=== PATIENT | female | born 1940 | race African-American/Black ===

== ENCOUNTER 2022-01-14 09:51 | Outpatient (CLI) | payer MEDICARE, BC, SELFPAY ==
--- NOTE | ~2022-01-14 | XR_ITS ---
EXAMINATION: XR foot RT standing 2V DATE: 01/14/2022 11:01 INDICATION: Rheumatoid arthritis without rheumatoid factor. TECHNIQUE: 2 views of right foot with weightbearing were obtained. COMPARISON: None. FINDINGS: There is moderate hallux valgus. No fracture. There are erosions at the second and fifth me tatarsophalangeal joints. There is moderate osteoarthritis of first metatarsophalangeal joint and mil d osteoarthritis of some of the interphalangeal joints. There is moderate osteoarthritis of talonavic ular joint. There are enthesophytes at the posterior and plantar aspects of calcaneal tuberosity. IMPRESSION: 1. Erosions at second and fifth metatarsophalangeal joints, consistent with inflammatory arthropathy such as rheumatoid arthritis. 2. Polyarticular osteoarthritis. 3. Moderate hallux valgus. Reviewed, dictated and finalized at location A. IMPRESSION: 1. Erosions at second and fifth metatarsophalangeal joints, consistent with inf lammatory arthropathy such as rheumatoid arthritis. 2. Polyarticular osteoarthritis. 3. Moderate hallux valgus.
--- NOTE | ~2022-01-14 | XR_ITS ---
EXAMINATION: XR foot LT standing 2V DATE: 01/14/2022 11:01 INDICATION: Rheumatoid arthritis without rheumatoid factor. TECHNIQUE: 2 views of left foot with weightbearing were obtained. COMPARISON: None. FINDINGS: Pes planus is noted. There is moderate hallux valgus. No fracture. There is mild osteoarthr itis of first and second metatarsophalangeal joints and many of the interphalangeal joints and midfoo t joints. There are enthesophytes at the posterior and plantar aspects of calcaneal tuberosity. IMPRESSION: 1. Pes planus. 2. Hallux valgus. 3. Polyarticular osteoarthritis. Reviewed, dictated and finalized at location A.
--- NOTE | ~2022-01-14 | XR_ITS ---
EXAMINATION: XR hand BI arthritis min 3V DATE: 01/14/2022 11:01 INDICATION: Rheumatoid arthritis without rheumatoid factor. TECHNIQUE: 4 views of right hand and 4 views of left hand on a total of 7 radiographs were obtained. COMPARISON: None. FINDINGS: RIGHT HAND: Bone alignment is normal. There is advanced arthritis of the distal radioulnar joint, rad iocarpal compartment, and midcarpal compartment with extensive erosions and uniform joint space narro wing. There is mild osteoarthritis of first carpometacarpal joint. There is moderate osteoarthritis o f second metacarpophalangeal joint and mild osteoarthritis of the other metacarpophalangeal joints. T here is an erosion of head of third metacarpal. There is mild osteoarthritis of most of the interphal angeal joints. 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 There is severe osteoarthritis of distal radioulnar jose int. There is severe arthritis of the radiocarpal compartment, capitate-lunate joint, lunate-hamate j oint, and triscaphe joint. There is moderate osteoarthritis of first carpometacarpal joint. There is mild osteoarthritis of most of the metacarpophalangeal joints and interphalangeal joints. IMPRESSION: 1. Severe inflammatory arthropathy with a proximal predominance, likely rheumatoid arthritis. 2. Polyarticular osteoarthritis. Reviewed, dictated and finalized at location A. IMPRESSION: 1. Severe inflammatory arthropathy with a proximal predominance, likely rheumat oid arthritis. 2. Polyarticular osteoarthritis.
[2022-01-14 10:51] LABS: Hematocrit 29.1 % (37.0-47.0); Hemoglobin 8.9 g/dL (12.0-15.0); Mean Corpuscular HGB Conc 30.6 g/dl (32-36); Mean Corpuscular Hemoglobin 23.6 pg (26-34); Mean Corpuscular Volume 77.2 fl (80-100); Mean Platelet Volume 8.6 fl (7.4-10.4); Platelet Count Result 432 k/mm3 (150-375); Red Blood Count 3.77 M/mm3 (4.2-5.4); Red Cell Distribution Width 21.1 % (11.5-14.5); White Blood Count 7.2 K/mm3 (4.5-10.0)
[2022-01-14 11:03] LABS: Alanine Aminotransferase 9 U/L (6-35); Albumin Level 4.1 g/dL (3.5-5.1); Alkaline Phosphatase 150 U/L (38-126); Anion Gap 11 mmol/L (8-16); Aspartate Amino Transferase 15 U/L (14-36); Bilirubin,Total 0.2 mg/dL (0.2-1.3); Blood Urea Nitrogen 19 mg/dL (7-17); CRP 4.7 mg/dL (<1.0); Calcium 9.5 mg/dL (8.4-10.2); Carbon Dioxide 27 mmol/L (22-30); Chloride 100 mmol/L (98-107); Estimated Glomerular Filt Rate > 60; Glucose 86 mg/dL (65-110); Potassium 4.1 mmol/L (3.4-5.0); Sodium 138 mmol/L (137-145); Uric Acid 5.9 mg/dL (2.5-7.5)
[2022-01-14 11:10] LABS: Add Urine Microscopic? YES; Appearance Urine Cloudy (Clear); Bilirubin Urine Negative (Negative); Blood Urine Negative (Negative); Color Urine Yellow (Yellow); Glucose Urine UA Negative (Negative); Ketones Urine Negative (Negative); Leukocyte Esterase Ur Negative LEU/UL (Negative); Mucus Urine Moderate /lpf; Nitrate Urine Negative (Negative); Protein Urine 1+ mg/dL (Negative); Specific Grav Ur 1.021 (1.001-1.035); Squamous Epithelial Cell Urine Moderate /hpf (Few); Urobilinogen Urine Negative mg/dL (<2.0); WBC Urine 0-3 /hpf
[2022-01-14 11:26] LABS: Vitamin D 25 Hydroxy 29.9 ng/mL
[2022-01-14 11:45] LABS: Erythrocyte Sedimentation Rate 128 mm/hr (0-20)
[2022-01-14 15:44] LABS: Rheumatoid Factor 47.7 IU/ML (<12)
[2022-01-18 12:36] LABS: Anti Cyclic Citrullinated Pept >250 Units (<20)
== END 2022-01-14 09:52 | disposition home or self-care (01) ==
PROVIDERS: Visit Provider Internal Medicine
DX: M06.09 Rheumatoid arthritis without rheumatoid factor, multiple sites (principal); M17.0 Bilateral primary osteoarthritis of knee; Z79.899 Other long term (current) drug therapy; Z71.89 Other specified counseling; E55.9 Vitamin D deficiency, unspecified; M19.90 Unspecified osteoarthritis, unspecified site; M19.041 Primary osteoarthritis, right hand; M19.042 Primary osteoarthritis, left hand; M19.071 Primary osteoarthritis, right ankle and foot; M20.11 Hallux valgus (acquired), right foot; M19.072 Primary osteoarthritis, left ankle and foot; M20.12 Hallux valgus (acquired), left foot
CPT/HCPCS: 36415; 73130; 73620; 80053; 81001; 82306; 84550; 85027; 85652; 86038; 86140; 86200; 86430

== ENCOUNTER 2022-03-09 10:33 | Outpatient (CLI) | payer MEDICARE, BC, SELFPAY ==
[2022-03-09 10:49] LABS: Basophils Percent Auto 0.4 % (0.2-1.2); Eosinophils Absolute Auto 0.3 K/mm3 (0-0.3); Eosinophils Percent Auto 6.4 % (0-4.4); Hematocrit 32.5 % (37.0-47.0); Hemoglobin 10.1 g/dL (12.0-15.0); Immature Granulocyte Absolute 0.01 K/mm3 (0.00-0.031); Immature Granulocyte Percent A 0.2 % (0-0.5); Immature Reticulocyte Fraction 9.7 % (3.0-15.9); Lymphocytes Absolute Auto 1.43 K/mm3 (0.9-3.2); Lymphocytes Percent Auto 29.7 % (18.3-44.2); Mean Corpuscular HGB Conc 31.1 g/dl (32-36); Mean Corpuscular Hemoglobin 24.7 pg (26-34); Mean Corpuscular Volume 79.5 fl (80-100); Mean Platelet Volume 8.3 fl (7.4-10.4); Monocytes Absolute Auto 0.2 K/mm3 (0.1-0.6); Monocytes Percent Auto 4.6 % (2.6-8.5); Neutrophils Absolute Auto 2.8 K/mm3 (1.3-6.7); Neutrophils Percent Auto 58.7 % (45.5-73.1); Platelet Count Result 381 k/mm3 (150-375); Red Blood Count 4.09 M/mm3 (4.2-5.4); Red Cell Distribution Width 21.4 % (11.5-14.5); Reticulocyte Hemoglobin Conten 28.3 pg (28.2-35.7); Reticulocytes Absolute 0.03 B/L (32.2-175.7); White Blood Count 4.8 K/mm3 (4.5-10.0)
[2022-03-09 10:56] LABS: Platelet Estimate Adequate (Adequate); Schistocytes None Seen (NORMAL)
[2022-03-09 10:57] LABS: Anisocytosis 1+ (NORMAL)
[2022-03-09 11:40] LABS: Iron 33 ug/dL (37-170)
[2022-03-09 11:49] LABS: Percent Iron Saturation 11 % (20-50)
[2022-03-09 12:03] LABS: Alanine Aminotransferase 10 U/L (6-35); Albumin Level 4.3 g/dL (3.5-5.1); Alkaline Phosphatase 142 U/L (38-126); Anion Gap 11 mmol/L (8-16); Aspartate Amino Transferase 19 U/L (14-36); Bilirubin,Total 0.2 mg/dL (0.2-1.3); Blood Urea Nitrogen 23 mg/dL (7-17); Calcium 9.5 mg/dL (8.4-10.2); Carbon Dioxide 25 mmol/L (22-30); Chloride 103 mmol/L (98-107); Estimated Glomerular Filt Rate > 60; Glucose 87 mg/dL (65-110); Lactate Dehydrogenase 143 U/L (120-246); Potassium 3.9 mmol/L (3.4-5.0); Sodium 139 mmol/L (137-145)
[2022-03-09 12:48] LABS: Folic Acid > 20.0 ng/mL (2.76->20)
[2022-03-12 14:08] LABS: Methylmalonic Acid 133 nmol/L (87-318)
== END 2022-03-09 10:34 | disposition home or self-care (01) ==
LOC: ANHLAB 10:36
PROVIDERS: Visit Provider Internal Medicine Hematology & Oncology
DX: D64.9 Anemia, unspecified (principal)
CPT/HCPCS: 36415; 80053; 82607; 82728; 82746; 83540; 83550; 83615; 83921; 85025; 85046

== ENCOUNTER 2022-06-03 14:51 | Outpatient (CLI) | payer MEDICARE, BC, SELFPAY ==
[2022-06-03 15:17] LABS: Hematocrit 33.1 % (37.0-47.0); Hemoglobin 10.3 g/dL (12.0-15.0); Immature Platelet Fraction Pct 7.9 % (0.9-11.2); Mean Corpuscular HGB Conc 31.1 g/dl (32-36); Mean Corpuscular Hemoglobin 26.2 pg (26-34); Mean Corpuscular Volume 84.2 fl (80-100); Mean Platelet Volume 9.7 fl (7.4-10.4); Platelet Count Result 179 k/mm3 (150-375); Red Blood Count 3.93 M/mm3 (4.2-5.4); Red Cell Distribution Width 17.7 % (11.5-14.5); White Blood Count 5.9 K/mm3 (4.5-10.0)
[2022-06-03 16:49] LABS: Alanine Aminotransferase 14 U/L (6-35); Albumin Level 4.1 g/dL (3.5-5.1); Alkaline Phosphatase 144 U/L (38-126); Anion Gap 9 mmol/L (8-16); Aspartate Amino Transferase 22 U/L (14-36); Bilirubin,Total 0.3 mg/dL (0.2-1.3); Blood Urea Nitrogen 33 mg/dL (7-17); Calcium 9.3 mg/dL (8.4-10.2); Carbon Dioxide 24 mmol/L (22-30); Chloride 101 mmol/L (98-107); Estimated Glomerular Filt Rate 47; Glucose 90 mg/dL (65-110); Potassium 4.6 mmol/L (3.4-5.0); Sodium 134 mmol/L (137-145)
[2022-06-03 16:52] LABS: Erythrocyte Sedimentation Rate 17 mm/hr (0-20)
[2022-06-03 17:00] LABS: Appearance Urine Clear (Clear); Bacteria Urine None Seen /hpf; Bilirubin Urine Negative (Negative); Blood Urine Trace (Negative); Color Urine Yellow (Yellow); Glucose Urine UA Negative (Negative); Ketones Urine Negative (Negative); Leukocyte Esterase Ur Negative LEU/UL (Negative); Nitrate Urine Negative (Negative); Non Pathogenic Casts 0-2; Protein Urine Negative (Negative); RBC Urine 0-2 /hpf (0-2); Specific Grav Ur 1.015 (1.001-1.035); Squamous Epithelial Cell Urine Moderate /hpf (Few); Urobilinogen Urine 0.2 mg/dL (<2.0); WBC Urine 0-5 /hpf
[2022-06-03 17:05] LABS: Add Urine Microscopic? YES
== END 2022-06-03 14:52 | disposition home or self-care (01) ==
LOC: ANHLAB 14:55
PROVIDERS: Visit Provider Internal Medicine
DX: M06.09 Rheumatoid arthritis without rheumatoid factor, multiple sites (principal); M06.9 Rheumatoid arthritis, unspecified; M19.90 Unspecified osteoarthritis, unspecified site
CPT/HCPCS: 36415; 80053; 81001; 85027; 85055; 85652; 86140

== ENCOUNTER 2022-09-06 13:56 | Outpatient (CLI) | payer MEDICARE, BC, SELFPAY ==
[2022-09-06 14:11] LABS: Basophils Percent Auto 0.5 % (0.2-1.2); Eosinophils Absolute Auto 0.2 K/mm3 (0-0.3); Eosinophils Percent Auto 2.9 % (0-4.4); Hematocrit 29.5 % (37.0-47.0); Hemoglobin 9.4 g/dL (12.0-15.0); Immature Granulocyte Absolute 0.01 K/mm3 (0.00-0.031); Immature Granulocyte Percent A 0.2 % (0-0.5); Lymphocytes Absolute Auto 1.71 K/mm3 (0.9-3.2); Lymphocytes Percent Auto 30.5 % (18.3-44.2); Mean Corpuscular HGB Conc 31.9 g/dl (32-36); Mean Corpuscular Hemoglobin 26.1 pg (26-34); Mean Corpuscular Volume 81.9 fl (80-100); Mean Platelet Volume 8.2 fl (7.4-10.4); Monocytes Absolute Auto 0.3 K/mm3 (0.1-0.6); Monocytes Percent Auto 6.1 % (2.6-8.5); Neutrophils Absolute Auto 3.4 K/mm3 (1.3-6.7); Neutrophils Percent Auto 59.8 % (45.5-73.1); Platelet Count Result 393 k/mm3 (150-375); Red Cell Distribution Width 18.6 % (11.5-14.5); White Blood Count 5.6 K/mm3 (4.5-10.0)
[2022-09-06 16:42] LABS: Anion Gap 11 mmol/L (8-16); Blood Urea Nitrogen 24 mg/dL (7-17); Calcium 8.9 mg/dL (8.4-10.2); Carbon Dioxide 24 mmol/L (22-30); Chloride 101 mmol/L (98-107); Estimated Glomerular Filt Rate > 60; Glucose 88 mg/dL (65-110); Potassium 4.1 mmol/L (3.4-5.0); Sodium 136 mmol/L (137-145)
[2022-09-06 16:45] LABS: Iron 34 ug/dL (37-170)
[2022-09-06 17:09] LABS: Percent Iron Saturation 11 % (20-50)
[2022-09-06 19:06] LABS: Folic Acid > 20.0 ng/mL (2.76->20)
== END 2022-09-06 13:57 | disposition home or self-care (01) ==
LOC: ANHLAB 13:59
PROVIDERS: Visit Provider Internal Medicine Hematology & Oncology
DX: D64.9 Anemia, unspecified (principal)
CPT/HCPCS: 36415; 80048; 82607; 82728; 82746; 83540; 83550; 85025

== ENCOUNTER 2023-01-12 08:23 | Outpatient (CLI) | payer MEDICARE, BC, SELFPAY ==
[2023-01-12 08:46] LABS: Basophils Percent Auto 0.4 % (0.2-1.2); Eosinophils Absolute Auto 0.2 K/mm3 (0-0.3); Eosinophils Percent Auto 2.2 % (0-4.4); Hematocrit 31.5 % (37.0-47.0); Hemoglobin 9.9 g/dL (12.0-15.0); Immature Granulocyte Absolute 0.02 K/mm3 (0.00-0.031); Immature Granulocyte Percent A 0.3 % (0-0.5); Lymphocytes Absolute Auto 1.84 K/mm3 (0.9-3.2); Lymphocytes Percent Auto 27.1 % (18.3-44.2); Mean Corpuscular HGB Conc 31.4 g/dl (32-36); Mean Corpuscular Hemoglobin 26.2 pg (26-34); Mean Corpuscular Volume 83.3 fl (80-100); Mean Platelet Volume 8.3 fl (7.4-10.4); Monocytes Absolute Auto 0.3 K/mm3 (0.1-0.6); Monocytes Percent Auto 4.1 % (2.6-8.5); Neutrophils Absolute Auto 4.5 K/mm3 (1.3-6.7); Neutrophils Percent Auto 65.9 % (45.5-73.1); Platelet Count Result 508 k/mm3 (150-375); Red Blood Count 3.78 M/mm3 (4.2-5.4); Red Cell Distribution Width 17.2 % (11.5-14.5); White Blood Count 6.8 K/mm3 (4.5-10.0)
[2023-01-12 12:07] LABS: Anion Gap 13 mmol/L (8-16); Blood Urea Nitrogen 28 mg/dL (7-17); Calcium 10.1 mg/dL (8.4-10.2); Carbon Dioxide 24 mmol/L (22-30); Chloride 103 mmol/L (98-107); Estimated Glomerular Filt Rate > 60; Glucose 101 mg/dL (65-110); Potassium 4.1 mmol/L (3.4-5.0); Sodium 140 mmol/L (137-145)
[2023-01-12 12:11] LABS: Iron 45 ug/dL (37-170)
[2023-01-12 12:20] LABS: Percent Iron Saturation 17 % (20-50)
[2023-01-12 13:35] LABS: Folic Acid > 20.0 ng/mL (2.76->20)
== END 2023-01-12 08:24 | disposition home or self-care (01) ==
PROVIDERS: Visit Provider Internal Medicine Hematology & Oncology
DX: D64.9 Anemia, unspecified (principal)
CPT/HCPCS: 36415; 80048; 82607; 82728; 82746; 83540; 83550; 85025

== ENCOUNTER 2023-05-26 10:28 | Outpatient (CLI) | payer MEDICARE, BC, SELFPAY ==
[2023-05-26 10:47] LABS: Hematocrit 32.8 % (37.0-47.0); Hemoglobin 10.4 g/dL (12.0-15.0); Mean Corpuscular HGB Conc 31.7 g/dl (32-36); Mean Corpuscular Hemoglobin 27.2 pg (26-34); Mean Corpuscular Volume 85.6 fl (80-100); Platelet Count Result 446 k/mm3 (150-375); Red Blood Count 3.83 M/mm3 (4.2-5.4); Red Cell Distribution Width 16.7 % (11.5-14.5); White Blood Count 6.6 K/mm3 (4.5-10.0)
[2023-05-26 11:56] LABS: Iron 22 ug/dL (37-170)
[2023-05-26 12:07] LABS: Percent Iron Saturation 9 % (20-50)
[2023-05-26 13:10] LABS: Folic Acid > 20.0 ng/mL (2.76->20)
== END 2023-05-26 10:29 | disposition home or self-care (01) ==
LOC: ANHLAB 10:31
PROVIDERS: PCP Internal Medicine; Visit Provider Internal Medicine Hematology & Oncology
DX: D64.9 Anemia, unspecified (principal)
CPT/HCPCS: 36415; 82607; 82728; 82746; 83540; 83550; 85027

== ENCOUNTER 2023-09-12 08:32 | Outpatient (CLI) | payer MEDICARE, BC, SELFPAY ==
[2023-09-12 09:07] LABS: Basophils Percent Auto 0.3 % (0.2-1.2); Eosinophils Absolute Auto 0.1 K/mm3 (0-0.3); Eosinophils Percent Auto 2.3 % (0-4.4); Hematocrit 28.2 % (37.0-47.0); Hemoglobin 8.6 g/dL (12.0-15.0); Immature Granulocyte Absolute 0.01 K/mm3 (0.00-0.031); Immature Granulocyte Percent A 0.2 % (0-0.5); Lymphocytes Absolute Auto 1.43 K/mm3 (0.9-3.2); Lymphocytes Percent Auto 23.1 % (18.3-44.2); Mean Corpuscular HGB Conc 30.5 g/dl (32-36); Mean Corpuscular Hemoglobin 22.2 pg (26-34); Mean Corpuscular Volume 72.9 fl (80-100); Mean Platelet Volume 8.5 fl (7.4-10.4); Monocytes Absolute Auto 0.3 K/mm3 (0.1-0.6); Monocytes Percent Auto 5.5 % (2.6-8.5); Neutrophils Absolute Auto 4.2 K/mm3 (1.3-6.7); Neutrophils Percent Auto 68.6 % (45.5-73.1); Platelet Count Result 561 k/mm3 (150-375); Red Blood Count 3.87 M/mm3 (4.2-5.4); White Blood Count 6.2 K/mm3 (4.5-10.0)
[2023-09-12 09:36] LABS: Iron 25 ug/dL (37-170)
[2023-09-12 09:45] LABS: Percent Iron Saturation 9 % (20-50)
[2023-09-12 10:42] LABS: Folic Acid > 20.0 ng/mL (2.76->20)
== END 2023-09-12 08:33 | disposition home or self-care (01) ==
LOC: ANHLAB 08:35
PROVIDERS: Nurse Practitioner Family; PCP Internal Medicine; Visit Provider Internal Medicine Hematology & Oncology
DX: D64.9 Anemia, unspecified (principal)
CPT/HCPCS: 36415; 82607; 82728; 82746; 83540; 83550; 85025

== ENCOUNTER 2024-01-17 12:09 | Outpatient (CLI) | payer MEDICARE, BC, SELFPAY ==
[2024-01-17 12:29] LABS: Basophils Percent Auto 0.2 % (0.2-1.2); Eosinophils Absolute Auto 0.2 K/mm3 (0-0.3); Eosinophils Percent Auto 1.8 % (0-4.4); Hematocrit 29.5 % (37.0-47.0); Immature Granulocyte Absolute 0.02 K/mm3 (0.00-0.031); Immature Granulocyte Percent A 0.2 % (0-0.5); Lymphocytes Absolute Auto 2.04 K/mm3 (0.9-3.2); Lymphocytes Percent Auto 24.1 % (18.3-44.2); Mean Corpuscular HGB Conc 30.5 g/dl (32-36); Mean Corpuscular Hemoglobin 23.3 pg (26-34); Mean Corpuscular Volume 76.4 fl (80-100); Mean Platelet Volume 8.2 fl (7.4-10.4); Monocytes Absolute Auto 0.3 K/mm3 (0.1-0.6); Monocytes Percent Auto 3.8 % (2.6-8.5); Neutrophils Absolute Auto 5.9 K/mm3 (1.3-6.7); Neutrophils Percent Auto 69.9 % (45.5-73.1); Platelet Count Result 429 k/mm3 (150-375); Red Blood Count 3.86 M/mm3 (4.2-5.4); White Blood Count 8.5 K/mm3 (4.5-10.0)
[2024-01-17 12:41] LABS: Anisocytosis 1+; Microcytosis 1+ (NORMAL); Platelet Estimate Increased (Adequate); Schistocytes None Seen
[2024-01-17 16:40] LABS: Anion Gap 9 mmol/L (4-12); Blood Urea Nitrogen 18 mg/dL (7-17); Calcium 9.6 mg/dL (8.4-10.2); Carbon Dioxide 29 mmol/L (22-30); Chloride 99 mmol/L (98-107); Estimated Glomerular Filt Rate > 60; Glucose 92 mg/dL (65-110); Potassium 4.1 mmol/L (3.4-5.0); Sodium 137 mmol/L (137-145)
[2024-01-17 16:41] LABS: Iron 77 ug/dL (37-170)
[2024-01-17 16:58] LABS: Percent Iron Saturation 28 % (20-50)
[2024-01-17 17:46] LABS: Folic Acid > 20.0 ng/mL (2.76->20)
== END 2024-01-17 12:10 | disposition home or self-care (01) ==
LOC: ANHLAB 12:11
PROVIDERS: Nurse Practitioner Family; PCP Internal Medicine; Visit Provider Internal Medicine Hematology & Oncology
DX: D50.9 Iron deficiency anemia, unspecified (principal)
CPT/HCPCS: 36415; 80048; 82607; 82728; 82746; 83540; 83550; 85025